=== PATIENT | male | born 1965 | race Caucasian/White ===

== ENCOUNTER → 2017-01-22 | Outpatient (CLI) | payer OTHER ==
--- NOTE | ~2017-01-22 | TH ---
Unit #: [id number] #: [id number] Patient: FEDERICO CAVANAUGH JR [id number] [address] [place], [place] [address] [id number] MR#: [id number] NAME: FEDERICO CAVANAUGH JR : 1965 SEX: M STUDY DATE/TIME: 01/22/2017 UNIT: CN ROOM: STUDY DESCRIPTION: Attending Physician: Fred Olivas M.D. Referring Physician: Fred Olivas M.D. Primary Care Physician: Andre Madrid M.D. CARDIOLOGY REPORT EXAM Stress nuclear and ECG combined. INDICATION Dyspnea, inability to exercise. SUMMARY Patient attempted exercise stress test but was unable. Technetium 99 Cardiolite 11 and 34.4 mCi was given intravenously at rest and stress, respectively, and Lexiscan was given intravenously. Appropriate views were obtained. FINDINGS The resting ECG is abnormal with deep T wave inversion in leads I and AVL and [address] depression downsloping in leads I and AVL. With stress, there was 1.[address] depression in V5 and V6. This was exercise stress test and the patient could not accomplish enough heart rate to administer technetium 99 Cardiolite. On the repeat resting ECG, the T waves remained inverted in leads V5 and V6 and became pseudo-normalized with Lexiscan. No changes were seen in I and AVL. There were no significant dysrhythmias, and there was no symptom. Perfusion images demonstrate no significant patient motion at rest or stress. There is no significant lung uptake, and there is mild LV enlargement. There is no significant RV enlargement, but it is poorly seen. Summed stress score is 8, summed difference score is 8. Changes involve primarily the anterior septum. Perfusion images: Moderate decrease in perfusion in the entire anterior wall from the base to the apex with stress compared to with rest. This has a configuration of chest wall attenuation artifact with decreased perfusion noted in the rest of the myocardium also. Gated perfusion wall motion analysis demonstrates end-diastolic volume 144 mL, calculated ejection fraction 41%. Qualitatively, this ejection fraction appears to be normal. IMPRESSION 1. Myocardial perfusion scan shows anterior ischemia with no infarction, mild in degree, moderate in area. 2. LV enlargement noted. 3. Reduced LV function noted. 4. Abnormal rest and stress ECG without diagnostic ischemia on the ECG. 5. Could not exercise enough to elevate heart rate. Unit #: [id number] #: [id number] Patient: FEDERICO CAVANAUGH JR Dictated by... Magdalene Ott/arnel TD: 01/22/2017 21:18 JOB #: [id number] CARDIOLOGY REPORT Page 1 of 1 X Federico Otero MD CARDIOLOGY REPORT
== END | disposition home or self-care (01) ==
LOC: CNUC 06:45
DX: R07.89 Other chest pain (principal); I10 Essential (primary) hypertension
CPT/HCPCS: 78452; 93017; 93306; A9500; J2785